=== PATIENT | female | born 1935 | race African-American/Black ===

== ENCOUNTER 2018-09-14 19:39 | Emergency (ER) | payer OTHER ==
[~2018-09-14] VITALS: Ht 172.7 cm; Wt 61.0 kg
[~2018-09-14 19:39] MED LIST: AMLODIPINE; OMEPRAZOLE
[2018-09-14 20:52] LABS: BASOPHILS % 0.8 % (0.0-2.0); EOSINOPHILS % 1.3 % (0.0-5.0); HEMATOCRIT. 26.5 % (36.0-48.0); HEMOGLOBIN. 8.3 g/dL (12.0-16.0); LYMPHOCYTES % 8.4 % (20.0-50.0); MEAN CORPUSCULAR HEMOGLOBIN 21.6 pg (28.0-32.0); MEAN CORPUSCULAR VOLUME 68.7 fL (81.0-99.0); MEAN PLATELET VOLUME 8.3 fl (7.4-10.4); NEUTROPHILS % 84.5 % (40.0-76.0); PLATELET 262 x1000/uL (130-400); RED BLOOD CELL COUNT 3.85 mill/uL (4.2-5.4); RED CELL DISTRIBUTION WIDTH 19.1 % (11.6-14.6)
[2018-09-14 20:57] LABS: CHLORIDE 113 mEq/L (98-107)
[2018-09-14 20:59] LABS: INR 1.1; PROTHROMBIN TIME 11.5 sec (9.6-11.0)
[2018-09-14 21:11] LABS: PLATELET ESTIMATE NORMAL
[2018-09-14] MEDS ORDERED: POTASSIUM CHLORIDE 20MEQ TABLET SR PO ONE (21:45)
[2018-09-14] MEDS ORDERED: IOHEXOL-350 100 ML BOTTLE ONE (23:30)
[2018-09-15] MEDS ORDERED: ACETAMINOPHEN WITH CODEINE 300/30MG TABLET PO ONE (01:00)
[2018-09-15] MEDS ORDERED: ASPIRIN 81MG TABLET PO ONE (01:15)
[2018-09-15] MEDS ORDERED: FUROSEMIDE 40MG/4ML VIAL IVP SCH (02:15)
[2018-09-15 03:16] VITALS: BP 139/65
== END 2018-09-15 03:26 | disposition short-term general hospital (02) ==
LOC: ER 19:39 → CANBEDREQ 09-15 03:35
DX: R07.89 Other chest pain (principal); R91.8 Other nonspecific abnormal finding of lung field; I27.20 Pulmonary hypertension, unspecified; R01.1 Cardiac murmur, unspecified
CPT/HCPCS: 36415; 71045; 71275; 80053; 83880; 84484; 85025; 85610; 93005; 96374; 99285; J1940; Q9967

== ENCOUNTER 2021-04-10 00:53 | Inpatient (IN) | payer MEDICARE, OTHER ==
[~2021-04-10] VITALS: Ht 165.1 cm; Wt 59.0 kg
[2021-04-10 02:37] LABS: BASOPHILS % 0.3 % (0.0-2.0); EOSINOPHILS % 0.3 % (0.0-5.0); HEMATOCRIT. 29.2 % (36.0-48.0); HEMOGLOBIN. 9.1 g/dL (12.0-16.0); LYMPHOCYTES % 13.2 % (20.0-50.0); MEAN CORPUSCULAR HEMOGLOBIN 21.8 pg (28.0-32.0); MEAN CORPUSCULAR VOLUME 69.8 fL (81.0-99.0); MEAN PLATELET VOLUME 9.8 fl (7.4-10.4); MONOCYTES % 4.1 % (2.0-8.0); NEUTROPHILS % 82.1 % (40.0-76.0); PLATELET 264 x1000/uL (130-400); RED BLOOD CELL COUNT 4.18 mill/uL (4.2-5.4); RED CELL DISTRIBUTION WIDTH 19.5 % (11.6-14.6)
[2021-04-10 02:47] LABS: PLATELET ESTIMATE NORMAL
[2021-04-10 02:54] LABS: CHLORIDE 112 mEq/L (98-107)
[2021-04-10 03:08] LABS: CLARITY URINE CLOUDY (CLEAR); COLOR URINE YELLOW (YELLOW); KETONES URINE NEGATIVE (NEGATIVE); LEUKOCYTE ESTERASE URINE NEGATIVE (NEGATIVE); NITRITE URINE NEGATIVE (NEGATIVE); OCCULT BLOOD URINE TRACE (NEGATIVE); PROTEIN URINE 1+ (NEGATIVE); SPECIFIC GRAVITY URINE 1.012 (1.005-1.030); UROBILINOGEN URINE 0.2 E.U./dL (0.2-1.0)
[2021-04-10] MEDS ORDERED: SODIUM CHLORIDE 0.9% 1,000 ML IV ONE (03:30)
[2021-04-10] MEDS ORDERED: LORAZEPAM 2MG/ML CPJ IV PRN (14:15)
[2021-04-10 18:41] VITALS: BP 129/82
[2021-04-10] MEDS ORDERED: ACETAMINOPHEN 325MG TABLET PO PRN (21:00)
[2021-04-10] MEDS ORDERED: ONDANSETRON HCL 4MG/2ML INJ IV PRN (21:00)
== END 2021-04-11 05:27 | disposition home or self-care (01) | DRG 682 ==
LOC: ER 00:53 → MICUSO 03:39 → EDBEDREQSVC 11:36 → CANBEDREQ 04-11 05:26
PROVIDERS: ADMIT Internal Medicine; ATTEND Internal Medicine
DX: N17.0 Acute kidney failure with tubular necrosis (principal); E43 Unspecified severe protein-calorie malnutrition; E78.00 Pure hypercholesterolemia, unspecified; I10 Essential (primary) hypertension; I48.91 Unspecified atrial fibrillation; Z20.822 Contact with and (suspected) exposure to COVID-19; F03.90 Unspecified dementia, unspecified severity, without behavioral disturbance, psychotic disturbance, mood disturbance, and anxiety; D64.9 Anemia, unspecified; Z68.21 Body mass index [BMI] 21.0-21.9, adult
CPT/HCPCS: 36415; 80053; 81003; 84484; 85025; 87426; 93005; 99285; J2060